=== PATIENT | female | born 2005 | race Caucasian/White ===

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

== ENCOUNTER 2024-08-06 11:29 | Emergency (ER) | payer BC ==
[~2024-08-06] VITALS: Ht 172.7 cm; Wt 63.6 kg
[~2024-08-06 11:29] MED LIST: ABILIFY5 MG PO; ADDERALL XR 10M10 MG PO; ZOLOFT 50MG50 MG PO
[2024-08-06 12:41] LABS: COLLECTION METHOD CLEAN CATCH
[2024-08-06 12:59] LABS: URINE APPEARANCE CLEAR (CLEAR/HAZY); URINE BLOOD NEGATIVE (NEGATIVE); URINE COLOR Dark Yellow (YELLOW); URINE GLUCOSE NEGATIVE (NEGATIVE); URINE KETONE TRACE (NEGATIVE); URINE NITRATE NEGATIVE (NEGATIVE); URINE PROTEIN(semi-quant) NEGATIVE (NEGATIVE)
[2024-08-06 15:12] VITALS: BP 109/79; PULSE 87; TEMP 97.9
== END 2024-08-06 15:13 | disposition home or self-care (01) ==
LOC: COL.ER 11:29
PROVIDERS: Nurse Practitioner
DX: R30.0 Dysuria (principal); U07.0 Vaping-related disorder